=== PATIENT | male | born 1960 | race Caucasian/White ===

== ENCOUNTER 2016-10-12 01:33 | Emergency (ER) | payer OTHER ==
[2016-10-12 02:30] LABS: Hematocrit 36 % (42-52); Hemoglobin 11.9 g/dl (14.0-18.0); Mean Corpuscular HGB Conc 33 g/dl (31-36); Mean Corpuscular Hemoglobin 33 pg (27-31); Mean Corpuscular Volume 100 fL (80-94); Mean Platelet Volume 7 um3 (7.4-10.4); Red Blood Count 3.61 10^6/ul (4.0-5.4); Red Cell Distribution Width 13 % (10.5-15); White Blood Count 9.8 10^3/ul (3.5-10.8)
[2016-10-12 02:39] LABS: Urine Bilirubin Negative (Negative); Urine Glucose Negative (Negative); Urine Nitrite Negative (Negative)
[2016-10-12 02:46] LABS: Albumin 3.5 g/dL (3.2-5.2); BUN/Creatinine Ratio 23.5 (8-20); C Reactive Protein 8.44 mg/L (< 5.00); Calcium 8.8 mg/dL (8.6-10.3); EGFR African American 102.1 (>60); EGFR Non-African American 79.4 (>60); Globulin 3.1 g/dL (2-4); Magnesium 2.1 mg/dL (1.9-2.7); Potassium 3.8 mmol/L (3.5-5.0); Total Bilirubin 0.3 mg/dL (0.2-1.0); Total Protein 6.6 g/dL (6.4-8.9)
[2016-10-12 02:55] LABS: TSH (Thyroid Stimulating Horm) 5.96 mcIU/mL (0.34-5.60)
[2016-10-12] MEDS ORDERED: Iohexol 350* (CONTRAST) 500 ML MDV IV ONE (03:49)
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
[2016-10-12 05:42] VITALS: BP 161/83
--- NOTE | 2016-10-12 07:56 | RAD ---
HISTORY: Shortness of breath, recent pneumothorax COMPARISONS: January 12, 2011 VIEWS:1: Single frontal portable view of the chest at 2:38 AM FINDINGS: LINES AND TUBES: None. CARDIOMEDIASTINAL SILHOUETTE: The cardiomediastinal silhouette is normal for portable technique. PLEURA: The costophrenic angles are sharp. No pleural abnormalities are noted. There is no appreciable pneumothorax. LUNG PARENCHYMA: The lungs are clear. ABDOMEN: The upper abdomen is clear. There is no subphrenic gas. BONES AND SOFT TISSUES: There are fractures of the posterior aspects of the right fourth, fifth, sixth, seventh, eighth ribs. IMPRESSION: MULTIPLE RIGHT-SIDED RIB FRACTURES. NO APPRECIABLE PNEUMOTHORAX.
== END 2016-10-12 05:38 | disposition home or self-care (01) ==
LOC: ED 01:33
DX: R06.00 Dyspnea, unspecified (principal); R79.1 Abnormal coagulation profile; V29.9XXD Motorcycle rider (driver) (passenger) injured in unspecified traffic accident, subsequent encounter; S22.41XD Multiple fractures of ribs, right side, subsequent encounter for fracture with routine healing; R42 Dizziness and giddiness; R07.89 Other chest pain; K21.9 Gastro-esophageal reflux disease without esophagitis; Z96.651 Presence of right artificial knee joint; Z88.0 Allergy status to penicillin
CPT/HCPCS: 36415; 71010; 80053; 81003; 82550; 82553; 83605; 83690; 83735; 83880; 84443; 84484; 85025; 85379; 85610; 85730; 86140; 93005; 99283

== ENCOUNTER 2017-07-31 07:06 | Observation (INO) | payer OTHER ==
[2017-07-31] MEDS ORDERED: Diltiazem IV* 5 MG/ML 5 ML VIAL (for loading dose/IV Push) (25 MG) IV SLOW PU ONE (07:27)
[2017-07-31] MEDS ORDERED: NS 0.9% 1000 ML* 2,000 ML IV ONE (07:27)
[2017-07-31] MEDS ORDERED: Aspirin 81 mg CHEW TAB* 81 MG TAB.CHEW PO ONE (07:27)
[2017-07-31 07:42] LABS: ABS Basophils 0.1 10^3/ul (0-0.2); ABS Eosinophils 0.1 10^3/ul (0-0.6); ABS Lymphocytes 2.2 10^3/ul (1.0-4.8); ABS Monocytes 1.2 10^3/ul (0-0.8); ABS Neutrophils 8.6 10^3/ul (1.5-7.7); ABS Nucleated RBC 0 10^3/ul; Eosinophil % 1.1 % (0-6); Hematocrit 47 % (42-52); Hemoglobin 16.2 g/dl (14.0-18.0); Lymphocyte % 18.2 % (25-47); Mean Corpuscular HGB Conc 34 g/dl (31-36); Mean Corpuscular Hemoglobin 34 pg (27-31); Mean Corpuscular Volume 99 fL (80-94); Mean Platelet Volume 7.5 um3 (7.4-10.4); Nucleated Red Blood Cells % 0.1; Platelet Count 372 10^3/ul (150-450); Red Blood Count 4.78 10^6/ul (4.0-5.4); Red Cell Distribution Width 13 % (10.5-15); White Blood Count 12.3 10^3/ul (3.5-10.8)
[2017-07-31 07:50] LABS: INR 0.79 (0.77-1.02)
[2017-07-31 07:58] LABS: EGFR Non-African American 55.1 (>60)
--- NOTE | 2017-07-31 08:15 | RAD ---
Indication: Mid chest pain for 4 hours. Tachycardia. Comparison: October 13, 2016 CT. Technique: Upright AP chest 0730 hours Report: Multiple healed RIGHT rib fractures and mild volume loss of the RIGHT hemithorax without change. No pulmonary infiltrate, focal pulmonary lesion, pleural effusion, pneumothorax. The heart, pulmonary vasculature, and mediastinal contours are unremarkable. IMPRESSION: No evidence for acute intrathoracic disease.
[2017-07-31] MEDS ORDERED: Metoprolol Tartrate TAB* 25 MG PO ONE (08:21)
[2017-07-31] MEDS ORDERED: Diltiazem DRIP* 100 MG/100 ML ADDV.BAG IVPB ONE (08:44)
[2017-07-31] MEDS ORDERED: Al Hydrox/Mg Hydrox/Simet LIQ* 30 ML UDC PO PRN (09:05)
[2017-07-31] MEDS ORDERED: Acetaminophen TAB* 325 MG PO PRN (09:05)
[2017-07-31] MEDS ORDERED: Heparin DRIP 25,000 UNITS(*) 25,000 UNITS/500 ML BAG IV SCH (09:15)
[2017-07-31] MEDS: Diltiazem IV VIAL* 125 MG in NS 0.9% 100 ML* 100 ML IV ONE ×2 (09:30→10:28)
[2017-07-31] MEDS: NS 0.9% 1000 ML* 1,000 ML IV SCH ×2 (10:30→18:13)
[2017-07-31] MEDS ORDERED: Thiamine IV* 100 MG/ML 2 ML VIAL IM ONE (10:42)
[2017-07-31] MEDS ORDERED: LORazepam TAB(*) 1 MG PO SCH (11:00)
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
[2017-07-31] MEDS ORDERED: Perflutren Lipid Microsphere* 3 ML VIAL ONE (13:40)
--- NOTE | 2017-07-31 16:17 | ECHO ---
Patient: MARZENA SIMENTAL [facility] Rec#: [id number] : 1960 Date: 07/31/2017 Age: 57y Height: 182.88 cm / 72.0 in Weight: 93.89 kg / 206.9 lbs Sex: M BSA: 2.16 Room#: [facility] Admit Date#: 07/31/2017 Type: Inpatient Referring: Catrachita Preston MD Reading: Chris Olmstead DO Production Utility Worker: Mariaelena Andrea MIGUEL CC: Josh Lynch MD Transthoracic Echocardiogram Indication: A-fib BP: 101/74 HR: 88 Rhythm: A-Fib Findings History: CP, new a-fib,GERD. Technical Comments: The study is technically limited due to patient body habitus. Definity was used to enhance images. Left Ventricle: The left ventricular chamber size is normal. There is no left ventricular hypertrophy. There is a prominent septal knuckle. Global left ventricular wall motion and contractility are within normal limits. There is normal left ventricular systolic function. The estimated ejection fraction is 55-60%. The assessment of diastolic function is non-diagnostic. Left Atrium: The left atrial chamber size is normal. Right Ventricle: The right ventricular chamber size and systolic function are within normal limits. Right Atrium: The right atrial cavity size is normal. Aortic Valve: The aortic valve is trileaflet. There is no evidence of aortic regurgitation. There is no evidence of aortic stenosis. Mitral Valve: The mitral valve leaflets appear normal. There is mild mitral regurgitation. The mitral regurgitant jet is centrally directed. There is no evidence of mitral stenosis. Tricuspid Valve: The tricuspid valve leaflets are normal. There is trace tricuspid regurgitation. Unable to estimate the right ventricular systolic pressure. Pulmonic Valve: The pulmonic valve appears normal. There is a trace pulmonic regurgitation. There is no pulmonic stenosis. Pericardium: There is no significant pericardial effusion. Aorta: There is no dilatation of the ascending aorta. There is no dilatation of the aortic arch. There is no dilation of the aortic root. Pulmonary Artery: The main pulmonary artery appears normal. Venous: The venous system is not well visualized. Contrast: Definity was used to optimize study. A total of 3 ml given. Intravenous contrast was used to enhance endocardial border definition. Conclusions The left ventricular chamber size is normal. There is no left ventricular hypertrophy. There is a prominent septal knuckle. Global left ventricular wall motion and contractility are within normal limits. There is normal left ventricular systolic function. The estimated ejection fraction is 55-60%. The left atrial chamber size is normal. The right ventricular chamber size and systolic function are within normal limits. There is mild mitral regurgitation. Definity was used to optimize study. Patient is in atrial fibrillation at time of study None prior for comparison at time of interpretation Measurements Name Value Normal Range RVIDd (AP) 2D 2.7 cm (0.9 - 2.6) RVDdMajor (2D) 3.9 cm (2.2 - 4.4) RAd ISD 4CH 4.8 cm (3.4 - 4.9) RA (A4C)W 3.4 cm (2.9 - 4.6) IVSd (2D) 0.8 cm (0.6 - 1) LVPWd (2D) 0.9 cm (0.6 - 1) LVIDd (2D) 3.8 cm (3.6 - 5.4) LVIDs (2D) 2.8 cm - LV FS (2D) 25 % (25 - 45) Aortic Annulus 2 cm (1.4 - 2.6) Ao root diameter (2D) 3.5 cm (2.1 - 3.5) Ascending Ao 3.1 cm (2.1 - 3.4) Aortic arch 3.2 cm (1.8 - 3.4) Descending Ao 0.6 cm - LA dimension (AP) 2D 3.5 cm (2.3 - 3.8) LAd ISD 4CH 5.6 cm (2.9 - 5.3) LA ISD 4CH W 3.4 cm (2.5 - 4.5) Name Value Normal Range LA ESV SP 4CH (A/L) 44 ml - LA ESV SP 2CH (A/L) 71 ml - LA ESV BP (A/L) 59 ml - LA ESV BP (A/L) index 27.15 ml/m2 - LA ESV SP 4CH (MOD) 42 ml - LA ESV SP 2CH (MOD) 67 ml - Name Value Normal Range MV E-wave Vmax 1.1 m/sec - MV deceleration time 236 msec - LV septal e' Vmax 0.11 m/sec - LV lateral e' Vmax 0.12 m/sec - LV E:e' septal ratio 10 ratio - LV E:e' lateral ratio 9.17 ratio - Name Value Normal Range AV Vmax 1.4 m/sec - AV VTI 25.7 cm - AV peak gradient 8.08 mmHg - AV mean gradient 4.1 mmHg - LVOT Vmax 1.1 m/sec - LVOT VTI 20.8 cm - LVOT peak gradient 4.39 mmHg - LVOT mean gradient 2.16 mmHg - Name Value Normal Range MR Vmax 4 m/sec - MR VTI 127.3 cm - Name Value Normal Range PV Vmax 0.7 m/sec - PV peak gradient 1.89 mmHg -
[2017-07-31] MEDS: Diazepam TAB(*) 5 MG PO PRN (17:54)
--- NOTE | 2017-07-31 17:59 | ED ---
Dorothea Galindo Thomas, scribed for Gonzales Everett MD on 07/31/17 at 0723 . HPI Chest Pain - HPI Summary HPI Summary: The patient is a 57 year old male who woke up this morning with chest pain. The pain began four hours prior to arrival. The pain is rated 5/10. The patient also complains of intermittent racing palpitations. The patient denies leg pain and calf pain. He denies a history of A-Fib. In the examination room, he is A- Fib on the monitor. He does admit to some stress because he is going through a divorce. - History of Current Complaint Chief Complaint: EDChestPainROMI Hx Obtained From: Patient Onset/Duration: Started Hours Ago, Still Present Timing: Intermittent Current Severity: Moderate Pain Intensity: 5 Pain Scale Used: 0-10 Numeric Aggravating Factor(s): Nothing Alleviating Factor(s): Nothing Associated Signs and Symptoms: Positive: Chest Pain, Other: - Palpitations; NEGATIVE: leg swelling, calf pain. Negative: Fever - Allergy/Home Medications Allergies/Adverse Reactions: Allergies Allergy/AdvReac Type Severity Reaction Status Date / Time Penicillins Allergy Severe Anaphylatic Verified 07/31/17 08:52 Shock Home Medications: Home Medications NK [No Home Medications Reported] 07/31/17 [History Confirmed 07/31/17] PMH/Surg Hx/FS Hx/Imm Hx Endocrine/Hematology History: Denies: Hx Diabetes, Hx Thyroid Disease Cardiovascular History: Denies: Hx Hypertension, Hx Pacemaker/ICD Respiratory History: Denies: Hx Asthma, Hx Chronic Obstructive Pulmonary Disease (COPD) GI History: Reports: Hx Gastroesophageal Reflux Disease Denies: Hx Ulcer History: Denies: Hx Dialysis, Hx Renal Disease Musculoskeletal History: Reports: Hx Arthritis - ARTHRITIS IN THE RIGHT KNEE, Hx Bursitis - left elbow, Other Musculoskeletal History - LEFT SHOULDER SEPARATION OF THE LEFT AC JOINT Sensory History: Reports: Hx Contacts or Glasses - GLASSES Denies: Hx Hearing Aid Opthamlomology History: Reports: Hx Contacts or Glasses - GLASSES Psychiatric History: Denies: Hx Panic Disorder - Surgical History Surgery Procedure, Year, and Place: 2011 RIGHT KNEE SCOPE. 2010- RIGHT KNEE SCOPE. TEETH EXTRACTION AGE 13-. TONSILLECTOMY- AGE 13. Thumb laceration. RIGHT KNEE REPLACEMENT [facility]. CHEST TUBE. LT ELBOW - FRACTURED AND BURSA SAC REMOVED Hx Anesthesia Reactions: Yes - N/V A CHILD- NO PROBLEM WITH KNEE SCOPES Infectious Disease History: No Infectious Disease History: Denies: Hx Hepatitis, Hx Human Immunodeficiency Virus (HIV), Traveled Outside the [place] in Last 30 Days - Family History Known Family History: Positive: Other - CA. Negative: Hypertension - Social History Alcohol Use: Occasionally Hx Substance Use: No Substance Use Type: Reports: None Hx Tobacco Use: No Smoking Status (MU): Never Smoked Tobacco Review of Systems Negative: Fever Positive: Palpitations, Chest Pain Negative: Edema, Other - calf pain All Other Systems Reviewed And Are Negative: Yes Physical Exam - Summary Physical Exam Summary: General: well-appearing, no pain distress, no acute distress Skin: warm, color reflects adequate perfusion, dry Head: normal Eyes: EOMI, YOUSIF ENT: normal Neck: supple, nontender Respiratory: CTA, breath sounds present Cardiovascular: Tachycardia. Irregularly irregular rhythm. Abdomen: soft, nontender Bowel: present Musculoskeletal: normal, strength/ROM intact Neurological: normal, sensory/motor intact, A&O x3 Psychological: affect/mood appropriate Triage Information Reviewed: Yes Vital Signs On Initial Exam: Initial Vitals Temp Pulse Resp BP Pulse Ox 97.6 F 81 20 127/102 97 07/31/17 07:08 07/31/17 07:08 07/31/17 07:08 07/31/17 07:08 07/31/17 07:08 Vital Signs Reviewed: Yes Diagnostics - Vital Signs Vital Signs Temp Pulse Resp BP Pulse Ox 07/31/17 07:08 97.6 F 81 20 127/102 97 - Laboratory Lab Results: Lab Results 07/31/17 07/31/17 07/31/17 Range/Units 07:15 07:15 07:15 WBC (3.5-10.8) 10^3/ul RBC (4.0-5.4) 10^6/ul Hgb (14.0-18.0) g/dl Hct (42-52) % MCV (80-94) fL MCH (27-31) pg MCHC (31-36) g/dl RDW (10.5-15) % Plt Count (150-450) 10^3/ul MPV (7.4-10.4) um3 Neut % (Auto) (38-83) % Lymph % (Auto) (25-47) % Young % (Auto) (0-7) % Eos % (Auto) (0-6) % Baso % (Auto) (0-2) % Absolute Neuts (auto) (1.5-7.7) 10^3/ul Absolute Lymphs (auto) (1.0-4.8) 10^3/ul Absolute Monos (auto) (0-0.8) 10^3/ul Absolute Eos (auto) (0-0.6) 10^3/ul Absolute Basos (auto) (0-0.2) 10^3/ul Absolute Nucleated RBC 10^3/ul Nucleated RBC % INR (Anticoag Therapy) 0.79 (0.77-1.02) APTT 32.1 (26.0-36.3) seconds D-Dimer, Quantitative < 200 (Less Than 230) ng/mL Sodium 138 (133-145) mmol/L Potassium 3.9 (3.5-5.0) mmol/L Chloride 99 L (101-111) mmol/L Carbon Dioxide 26 (22-32) mmol/L Anion Gap 13 H (2-11) mmol/L BUN 21 (6-24) mg/dL Creatinine 1.34 H (0.67-1.17) mg/dL Est GFR ( Amer) 70.9 (>60) Est GFR (Non-Af Amer) 55.1 (>60) BUN/Creatinine Ratio 15.7 (8-20) Glucose 99 (70-100) mg/dL Lactic Acid (0.5-2.0) mmol/L Calcium 10.0 (8.6-10.3) mg/dL Magnesium 2.2 (1.9-2.7) mg/dL Total Bilirubin 0.50 (0.2-1.0) mg/dL AST 57 H (13-39) U/L ALT 60 H (7-52) U/L Alkaline Phosphatase 75 (34-104) U/L Total Creatine Kinase 212 (10-223) U/L CK-MB (CK-2) 3.5 (0.6-6.3) ng/mL Troponin I 0.01 (<0.04) ng/mL C-Reactive Protein 4.26 (< 5.00) mg/L B-Natriuretic Peptide 22 ( - 100) pg/mL Total Protein 8.1 (6.4-8.9) g/dL Albumin 4.3 (3.2-5.2) g/dL Globulin 3.8 (2-4) g/dL Albumin/Globulin Ratio 1.1 (1-3) Lipase 54 (11.0-82.0) U/L TSH 2.64 (0.34-5.60) mcIU/mL Salicylates < 2.50 (<30) mg/dL Acetaminophen < 15 mcg/mL Serum Alcohol 36 H (<10) mg/dL 07/31/17 07/31/17 Range/Units 07:15 07:15 WBC 12.3 H (3.5-10.8) 10^3/ul RBC 4.78 (4.0-5.4) 10^6/ul Hgb 16.2 (14.0-18.0) g/dl Hct 47 (42-52) % MCV 99 H (80-94) fL MCH 34 H (27-31) pg MCHC 34 (31-36) g/dl RDW 13 (10.5-15) % Plt Count 372 (150-450) 10^3/ul MPV 7.5 (7.4-10.4) um3 Neut % (Auto) 69.7 (38-83) % Lymph % (Auto) 18.2 L (25-47) % Young % (Auto) 10.1 H (0-7) % Eos % (Auto) 1.1 (0-6) % Baso % (Auto) 0.9 (0-2) % Absolute Neuts (auto) 8.6 H (1.5-7.7) 10^3/ul Absolute Lymphs (auto) 2.2 (1.0-4.8) 10^3/ul Absolute Monos (auto) 1.2 H (0-0.8) 10^3/ul Absolute Eos (auto) 0.1 (0-0.6) 10^3/ul Absolute Basos (auto) 0.1 (0-0.2) 10^3/ul Absolute Nucleated RBC 0 10^3/ul Nucleated RBC % 0.1 INR (Anticoag Therapy) (0.77-1.02) APTT (26.0-36.3) seconds D-Dimer, Quantitative (Less Than 230) ng/mL Sodium (133-145) mmol/L Potassium (3.5-5.0) mmol/L Chloride (101-111) mmol/L Carbon Dioxide (22-32) mmol/L Anion Gap (2-11) mmol/L BUN (6-24) mg/dL Creatinine (0.67-1.17) mg/dL Est GFR ( Amer) (>60) Est GFR (Non-Af Amer) (>60) BUN/Creatinine Ratio (8-20) Glucose (70-100) mg/dL Lactic Acid 2.2 H* (0.5-2.0) mmol/L Calcium (8.6-10.3) mg/dL Magnesium (1.9-2.7) mg/dL Total Bilirubin (0.2-1.0) mg/dL AST (13-39) U/L ALT (7-52) U/L Alkaline Phosphatase (34-104) U/L Total Creatine Kinase (10-223) U/L CK-MB (CK-2) (0.6-6.3) ng/mL Troponin I (<0.04) ng/mL C-Reactive Protein (< 5.00) mg/L B-Natriuretic Peptide ( - 100) pg/mL Total Protein (6.4-8.9) g/dL Albumin (3.2-5.2) g/dL Globulin (2-4) g/dL Albumin/Globulin Ratio (1-3) Lipase (11.0-82.0) U/L TSH (0.34-5.60) mcIU/mL Salicylates (<30) mg/dL Acetaminophen mcg/mL Serum Alcohol (<10) mg/dL Result Diagrams: 07/31/17 07:15 07/31/17 07:15 Lab Statement: Any lab studies that have been ordered have been reviewed, and results considered in the medical decision making process. - Radiology CXR Xray Interpretation: No Acute Changes - No evidence for acute intrathoracic disease. Dr. Everett has reviewed this report. Radiology Interpretation Completed By: Radiologist - EKG 07:19 Cardiac Rate: Tachycardia - at 144 BPM EKG Rhythm: Atrial Fibrillation EKG Interpretation: Rapid A-Fib at [address] depressions in lateral leads. 08:09 Cardiac Rate: Tachycardia - at 122 BPM EKG Rhythm: Atrial Fibrillation EKG Interpretation: Rapid A-Fib at 122 BPM. [address]. Normal [address]. 11:43 Cardiac Rate: NL EKG Rhythm: Atrial Fibrillation - at [address] Segment: Normal Chest Pain Course/Dx - Course Course Of Treatment: Medications reviewed. Allergies noted. BP noted and patient urged to follow up with primary care. - Diagnoses Provider Diagnoses: Elevated BP without diagnosis of hypertension, New onset atrial fibrillation, Chest pain - Provider Notifications Discussed Care Of Patient With: Catrachita Preston Time Discussed With Above Provider: 08:19 Instructed by Provider To: Admit As Inpatient - Critical Care Time Critical Care Time: 30-74 min Discharge - Sign-Out/Discharge Documenting (check all that apply): Discharge - Discharge Plan Condition: Fair Disposition: ADMITTED TO [facility] - Billing Disposition and Condition Condition: FAIR Disposition: [facility] [place] The documentation as recorded by the Dorothea bobby Thomas accurately reflects the service I personally performed and the decisions made by , Gonzales Everett MD.
[2017-07-31] MEDS ORDERED: Diltiazem CD CAP* 180 MG PO SCH (18:00)
[2017-07-31] MEDS ORDERED: Diltiazem IV VIAL* 125 MG in NS 0.9% 100 ML* 100 ML IV SCH (18:00)
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
[2017-07-31] MEDS ORDERED: Rivaroxaban TAB(*) 20 MG TAB PO SCH (18:30)
[2017-08-01] MEDS: NS 0.9% 1000 ML* 1,000 ML IV SCH ×2 (01:01→08:27)
[2017-08-01] MEDS ORDERED: Diltiazem IV VIAL* 125 MG in NS 0.9% 100 ML* 100 ML IV SCH (06:00)
[2017-08-01 06:56] LABS: ABS Basophils 0 10^3/ul (0-0.2); ABS Eosinophils 0.2 10^3/ul (0-0.6); ABS Lymphocytes 1.4 10^3/ul (1.0-4.8); ABS Monocytes 0.9 10^3/ul (0-0.8); ABS Neutrophils 4.8 10^3/ul (1.5-7.7); ABS Nucleated RBC 0 10^3/ul; Eosinophil % 2.1 % (0-6); Hematocrit 36 % (42-52); Hemoglobin 12.5 g/dl (14.0-18.0); Lymphocyte % 19.1 % (25-47); Mean Corpuscular HGB Conc 35 g/dl (31-36); Mean Corpuscular Hemoglobin 34 pg (27-31); Mean Corpuscular Volume 98 fL (80-94); Mean Platelet Volume 7.4 um3 (7.4-10.4); Nucleated Red Blood Cells % 0; Platelet Count 229 10^3/ul (150-450); Red Blood Count 3.66 10^6/ul (4.0-5.4); Red Cell Distribution Width 13 % (10.5-15); White Blood Count 7.3 10^3/ul (3.5-10.8)
[2017-08-01 07:13] LABS: EGFR Non-African American 76.4 (>60)
--- NOTE | 2017-08-01 08:16 | PN ---
Subjective Date of Service: 08/01/17 Interval History: Mr. Esquivel states that he is feeling much better and is eager for discharge to home. He denies chest pain. Objective Active Medications: Acetaminophen (Tylenol Tab*) 650 mg PO Q4H PRN Al Hydrox/Mg Hydrox/Simethicone (Maalox Plus*) 30 ml PO Q6H PRN Diazepam (Valium Tab(*)) 2.5 mg PO Q8H PRN Folic Acid (Folvite Tab*) 1 mg PO DAILY [facility] Sodium Chloride (Ns 0.9% 1000 Ml*) 1,000 mls @ 150 mls/hr IV PER RATE [facility] Diltiazem HCl 125 mg/ Sodium (Chloride) 125 mls @ 10 mls/hr IV Q12H [facility] Lorazepam (Ativan Tab(*)) 0 - 6 mg PO .PER [facility] PROTOCOL [facility] Multivitamins/Minerals (Theragran/Minerals Tab*) 1 tab PO DAILY [facility] Rivaroxaban (Xarelto(*)) 20 mg PO 1700 [facility] Thiamine HCl (Vitamin B-1 Tab*) 100 mg PO DAILY [facility] Vital Signs: Temp Pulse Resp BP Pulse Ox 98.1 F 73 20 123/58 99 08/01/17 03:42 07/31/17 19:01 08/01/17 03:42 08/01/17 06:32 07/31/17 19:01 Oxygen Devices in Use Now: None Appearance: Male lying in bed in NAD Eyes: No Scleral Icterus Ears/Nose/Mouth/Throat: Mucous Membranes Moist Neck: Trachea Midline Respiratory: Symmetrical Chest Expansion and Respiratory Effort, Clear to Auscultation Cardiovascular: NL Sounds; No Murmurs; No JVD, No Edema Abdominal: NL Sounds; No Tenderness; No Distention Lymphatic: No Cervical Adenopathy Extremities: No Edema Skin: No Rash or Ulcers Neurological: Alert and Oriented x 3, NL Muscle Strength and Tone Nutrition: Taking PO's Result Diagrams: 08/01/17 06:28 08/01/17 06:28 Additional Lab and Data: . Assess/Plan/Problems-Billing Assessment: Mr. Esquivel is a 57 yo M with no significant PMH who was admitted on 07/31/17 with chest pain and afib. - Patient Problems (1) Chest pain Comment: - Resolved. - Suspect secondary to afib with RVR. - Trops negative and no evidence of ischemia on EKG. (2) Afib Comment: - Resolved, suspect secondary to heavy alcohol intake. - Appreciate cardiology input. - Echo without wall motion or valvular abnormalities. - Continue cardizem and xarelto. (3) DVT prophylaxis Comment: - Xarelto. (4) Full code status Comment: Status and Disposition: OBV. Discharge to home.
[2017-08-01] MEDS: Diazepam TAB(*) 5 MG PO PRN (08:29)
[2017-08-01] MEDS ORDERED: Diltiazem CD CAP* 120 MG PO SCH (09:00)
[2017-08-01] MEDS ORDERED: Folic Acid TAB* 1 MG PO SCH (09:00)
[2017-08-01] MEDS ORDERED: Thiamine TAB* 100 MG TAB PO SCH (09:00)
[2017-08-01] MEDS ORDERED: Multivitamins/Minerals TAB PO SCH (09:00)
[2017-08-01 11:23] VITALS: BP 139/76
--- NOTE | 2017-08-02 02:56 | DS ---
HOSPITAL MEDICINE DISCHARGE SUMMARY: DATE OF ADMISSION: 07/31/17 DATE OF DISCHARGE: 08/01/17 PRIMARY CARE PHYSICIAN: Dr. Lynch. POLICY ADVISOR: Dr. Thapa. ATTENDING PHYSICIAN: Dr. Jae Jalloh * (dictation provided by Jannie Jensen NP). PRIMARY DIAGNOSES: 1. Chest pain. 2. Atrial fibrillation with rapid ventricular response. SECONDARY DIAGNOSIS: None. MEDICATIONS: At the time of discharge are: 1. Diltiazem CD 120 mg p.o. daily. 2. Xarelto 20 mg p.o. daily. HOSPITAL COURSE: Mr. Esquivel is a 57-year-old male with no known significant past medical history who presented to the hospital on 07/31/17 after developing chest pain in the middle of the night. Please see the dictated H and P from Catrachita Preston DO for the complete details. In brief, the patient reported that he had been drinking very heavily, approximately a fifth of whisky per day , due to stressor of his and divorce. He woke at 4 a.m. with chest pain in the center of his chest with palpitations. In the emergency room, he had a troponin, which was 0.01. His creatinine was slightly elevated to 1.34, potassium 3.9, magnesium 2.2. He had a lactic acid of 2.2. Mild leukocytosis at 12.3. Serum alcohol level is 36. Chest x-ray showed no acute process, but he was found to be in atrial fibrillation with a rapid ventricular response with a heart rate of 160s. Mr. Esquivel was put on a diltiazem drip as well as a heparin drip. Mr. Esquivel was seen in consultation by Dr. Chris Olmstead from Cardiology, who transitioned him from heparin drip over to Xarelto orally with plans for 3 to 4 weeks of therapy. The plan was for possible MINE with cardioversion if the patient did not convert independently. Mr. Esquivel converted overnight to normal sinus rhythm and has been in the normal sinus rhythm for several hours. He has been transitioned off his diltiazem drip on to diltiazem CD at a 120 mg p.o. daily. His blood pressure is well controlled and appropriate. He is also continued on his Xarelto. I spoke with Mr. Esquivel at length about his alcohol use and the fact that this is a high risk for complications especially with use of Xarelto. I also made clear to him that the atrial fibrillation was likely strongly related to alcohol and that he should avoid alcohol in the future. The patient reports that he has every intention to stop drinking and this has not really been a problem for him in the past. I have provided him with information about Alcoholics Anonymous. Mr. Esquivel is medically stable for discharge to home to follow up with Dr. Lynch and Dr. Thapa, who the patient is asking to be his new cuff presser. DISPOSITION: Home. DIET: Low-salt. ACTIVITY: As tolerated. FOLLOWUP PLANS: Please follow up with Dr. Thapa and Dr. Lynch regarding new onset atrial fibrillation. TIME SPENT: Approximately 60 minutes were spent on the discharge of this patient, more than half that time spent with the patient at the bedside reviewing the events leading up to this hospitalization, performing the physical examination, and reviewing my plan of care. JANNIE JENSEN, YEE [id number]/[facility] #: [id number] [facility]
== END 2017-08-01 14:05 | disposition home or self-care (01) ==
LOC: ED 07:06 → INTOOBSV 09:05 → MEDTELE 09:05
PROVIDERS: ADMIT Internal Medicine; ATTEND Internal Medicine
DX: R07.9 Chest pain, unspecified (principal); I48.91 Unspecified atrial fibrillation; Z87.19 Personal history of other diseases of the digestive system; N17.9 Acute kidney failure, unspecified; F10.10 Alcohol abuse, uncomplicated
CPT/HCPCS: 36415; 71045; 80048; 80053; 80320; 80329; 82550; 82553; 83605; 83690; 83735; 83880; 84443; 84484; 85025; 85379; 85610; 85730; 86140; 93005; 93306; 96374; 96375; 99284; A9270-GY; C8929; G0378; G0480; J3411

== ENCOUNTER 2018-07-14 07:50 | Emergency (ER) | payer SELFPAY ==
[2018-07-14] MEDS ORDERED: NS 0.9% 1000 ML** 1,000 ML IV ONE (08:18)
--- NOTE | 2018-07-14 08:20 | ED ---
Respiratory - HPI Summary HPI Summary: This patient is a 58 year old M presenting to ED with a chief complaint of SOB and cough since 6 months ago. The CC is described as coughing so hard that he sometimes vomits. He has been treated for PNA twice in the last 6 months. Was given a Z-julio cesar and put on a nebulizer just last week. He was not given abx. The patient rates the pain 0/10 in severity. Symptoms aggravated at night. Symptoms alleviated by nothing. Patient reports subjective fever and diaphoresis when he starts coughing. Patient denies CP. PMHx of afib, collapsed and punctured lung a little over a year ago and had a chest tube in. He is a non-smoker and has no hx of COPD or asthma. 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 - History of Current Complaint Chief Complaint: Frederick Stated Complaint: SOB, "I'M COUGHING TO THE POINT THAT I'M VOMINTING Time Seen by Provider: 07/14/18 08:13 Hx Obtained From: Patient Onset/Duration: Sudden Onset, Lasting Weeks - since 6 months ago, Still Present Timing: Constant Current Severity: None Pain Intensity: 0 Character: Cough (Productive) - to the point where he vomits Aggravating Factor(s): Other - worse at night Alleviating Factor(s): Nothing Associated Signs and Symptoms: Fever - subjective, SOB, Diaphoresis - Allergy/Home Medications Allergies/Adverse Reactions: Allergies Allergy/AdvReac Type Severity Reaction Status Date / Time Penicillins Allergy Severe Anaphylatic Verified 07/14/18 07:56 Shock PMH/Surg Hx/FS Hx/Imm Hx Endocrine/Hematology History: Denies: Hx Diabetes, Hx Thyroid Disease Cardiovascular History: Denies: Hx Hypertension, Hx Pacemaker/ICD, Hx Peripheral Vascular Disease Respiratory History: Denies: Hx Asthma, Hx Chronic Obstructive Pulmonary Disease (COPD) GI History: Reports: Hx Gastroesophageal Reflux Disease Denies: Hx Ulcer History: Denies: Hx Dialysis, Hx Renal Disease Musculoskeletal History: Reports: Hx Bursitis - left elbow, Other Musculoskeletal History - LEFT SHOULDER SEPARATION OF THE LEFT AC JOINT Denies: Hx Arthritis Sensory History: Reports: Hx Contacts or Glasses - GLASSES Denies: Hx Hearing Aid Opthamlomology History: Reports: Hx Contacts or Glasses - GLASSES Neurological History: Denies: Hx Headaches Psychiatric History: Reports: Hx Anxiety Denies: Hx Panic Disorder - Surgical History Surgery Procedure, Year, and Place: 2011 RIGHT KNEE SCOPE. 2011- RIGHT KNEE SCOPE. TEETH EXTRACTION AGE 13-. TONSILLECTOMY- AGE 13. Thumb laceration. RIGHT KNEE REPLACEMENT [facility]. CHEST TUBE. LT ELBOW - FRACTURED AND BURSA SAC REMOVED Hx Anesthesia Reactions: Yes - N/V A CHILD- NO PROBLEM WITH KNEE SCOPES - Immunization History Immunizations Up to Date: Yes Infectious Disease History: No Infectious Disease History: Denies: Hx Hepatitis, Hx Human Immunodeficiency Virus (HIV), Traveled Outside the [place] in Last 30 Days - Family History Known Family History: Positive: Other - [place]. Negative: Hypertension - Social History Alcohol Use: Occasionally Alcohol Amount: six pack Hx Substance Use: No Substance Use Type: Reports: None Hx Tobacco Use: No Smoking Status (MU): Never Smoked Tobacco Review of Systems Positive: Fever - subjective, Skin Diaphoresis Negative: Chest Pain Positive: Shortness Of Breath, Cough Positive: Vomiting All Other Systems Reviewed And Are Negative: Yes Physical Exam - Summary Physical Exam Summary: VITAL SIGNS: Reviewed. GENERAL: Patient is a well-developed and nourished MALE who is lying comfortable in the stretcher. Patient is not in any acute respiratory distress. HEAD AND FACE: No signs of trauma. No ecchymosis, hematomas or skull depressions. No sinus tenderness. EYES: PERRLA, EOMI x 2, No injected conjunctiva, no nystagmus. EARS: Hearing grossly intact. Ear canals and tympanic membranes are within normal limits. MOUTH: Oropharynx within normal limits. NECK: Supple, trachea is midline, no adenopathy, no JVD, no carotid bruit, no c- spine tenderness, neck with full ROM. CHEST: Symmetric, no tenderness at palpation LUNGS: Clear to auscultation bilaterally. No wheezing or crackles. CVS: Regular rate and rhythm, S1 and S2 present, no murmurs or gallops appreciated. ABDOMEN: Soft, non-tender. No signs of distention. No rebound no guarding, and no masses palpated. Bowel sounds are normal. EXTREMITIES: FROM in all major joints, no edema, no cyanosis or clubbing. NEURO: Alert and oriented x 3. No acute neurological deficits. Speech is normal and follows commands. SKIN: Dry and warm Triage Information Reviewed: Yes Vital Signs On Initial Exam: Initial Vitals Temp Pulse Resp BP Pulse Ox 97.0 F 88 16 158/99 98 07/14/18 07:53 07/14/18 07:53 07/14/18 07:53 07/14/18 07:53 07/14/18 07:53 Vital Signs Reviewed: Yes Diagnostics - Vital Signs Vital Signs Temp Pulse Resp BP Pulse Ox 07/14/18 07:53 97.0 F 88 16 158/99 98 - Laboratory Result Diagrams: 07/14/18 08:21 07/14/18 08:23 Lab Statement: Any lab studies that have been ordered have been reviewed, and results considered in the medical decision making process. - Radiology CXR Radiology Interpretation Completed By: Radiologist Summary of Radiographic Findings: No evidence for pneumonia or other acute intrathoracic process. Dr. Boo has reviewed this radiology report. - EKG 0829 Cardiac Rate: NL - 77 BPM EKG Rhythm: Sinus Rhythm EKG Comparison: No Significant Change - similar to 07/25/17 Summary of EKG Findings: No ST elevations Disposition - Course Assessment/Plan: 58-year-old female who presents to the emergency department with chief complaint of shortness of breath. Usually happens at nighttime. Test results without any significant abnormality. Chest x-ray shows no pneumonia or bronchitis. Since all test results are normal the patient will be discharged home with follow-up with PCP. Patient is hemodynamically stable alert and oriented 3. - Differential Dx - Cardiopulmonary Differential Diagnoses - Cardiopulmonary: Other - URI - Diagnoses Provider Diagnoses: URI (upper respiratory infection) Discharge - Sign-Out/Discharge Documenting (check all that apply): Patient Departure - discharge Patient Received Moderate/Deep Sedation with Procedure: No - Discharge Plan Condition: Stable Disposition: HOME Patient Education Materials: Upper Respiratory Infection (ED) Referrals: Josh Lynch MD [Primary Care Provider] - 3 Days Additional Instructions: RETURN TO THE ED FOR ANY WORSENING OR NEW SYMPTOMS. - Billing Disposition and Condition Condition: STABLE Disposition: Home - Attestation Statements Document Initiated by Scribe: Yes Documenting Scribe: Yung Melendez Provider For Whom Scribe is Documenting (Include Credential): Fred Boo MD Scribe Attestation: Yung Galindo, scribed for Fred Boo MD on 07/14/18 at 1844. Scribe Documentation Reviewed: Yes Provider Attestation: The documentation as recorded by the scribe, Yung Melendez accurately reflects the service I personally performed and the decisions made by me, Fred Boo MD Status of Scribe Document: Viewed
[2018-07-14 08:54] LABS: Activated Partial Thrombo Time 32.5 seconds (26.0-36.3); INR 0.85 (0.77-1.02)
[2018-07-14 08:54] LABS: ABS Basophils 0.1 10^3/ul (0-0.2); ABS Eosinophils 0.2 10^3/ul (0-0.6); ABS Lymphocytes 1.6 10^3/ul (1.0-4.8); ABS Monocytes 0.8 10^3/ul (0-0.8); ABS Neutrophils 5.5 10^3/ul (1.5-7.7); ABS Nucleated RBC 0 10^3/ul; Eosinophil % 2.1 %; Hematocrit 42 % (42-52); Hemoglobin 14.2 g/dl (14.0-18.0); Lymphocyte % 19.8 %; Mean Corpuscular HGB Conc 34 g/dl (31-36); Mean Corpuscular Hemoglobin 33 pg (27-31); Mean Corpuscular Volume 97 fL (80-94); Mean Platelet Volume 7.3 fL (7.4-10.4); Nucleated Red Blood Cells % 0; Platelet Count 333 10^3/ul (150-450); Red Blood Count 4.29 10^6/ul (4.00-5.40); Red Cell Distribution Width 12 % (10.5-15); White Blood Count 8.1 10^3/ul (3.5-10.8)
[2018-07-14 08:55] LABS: Influenza A Molecular NEGATIVE (Negative); Influenza B Molecular NEGATIVE (Negative)
[2018-07-14 09:08] LABS: Albumin/Globulin Ratio 1.3 (1-3); C Reactive Protein 5.23 mg/L (<8.01); CKMB ng/mL 1.3 ng/mL (0.6-6.3); Calcium 9.2 mg/dL (8.6-10.3); EGFR African American 88.1 (>60); EGFR Non-African American 72.8 (>60); Globulin 3.1 g/dL (2-4); Potassium 3.8 mmol/L (3.5-5.0); Total Bilirubin 0.5 mg/dL (0.2-1.0); Total Protein 7.1 g/dL (6.4-8.9)
[2018-07-14 09:40] LABS: Urine Appearance Clear; Urine Bilirubin Negative (Negative); Urine Blood Negative (Negative); Urine Color Straw; Urine Glucose Negative (Negative); Urine Ketones Negative (Negative); Urine Nitrite Negative (Negative); Urine Protein Negative (Negative); Urine Specific Gravity 1.004 (1.010-1.030); Urine Urobilinogen Negative (Negative)
[2018-07-14 11:02] VITALS: BP 159/87
== END 2018-07-14 11:01 | disposition home or self-care (01) ==
LOC: ED 07:50
DX: J06.9 Acute upper respiratory infection, unspecified (principal); I48.91 Unspecified atrial fibrillation; Z88.0 Allergy status to penicillin; K21.9 Gastro-esophageal reflux disease without esophagitis; F41.9 Anxiety disorder, unspecified
CPT/HCPCS: 36415; 71046; 80053; 81003; 82550; 82553; 83605; 83880; 84484; 85025; 85379; 85610; 85730; 86140; 93005; 96360; 96361; 99282

== ENCOUNTER 2018-08-02 02:07 | Emergency (ER) | payer SELFPAY ==
--- NOTE | 2018-08-02 02:29 | ED ---
Shortness of Breath - HPI Summary HPI Summary: A 58 y/o M presents to ED with c/o SOB onset last night and worsening today. He has been having this problem for months with undulating intensity. He coughs so hard, he vomits and has pulled muscles in his back in the past. Associated sx: productive cough (phlegm), wheezes. Pt has not been sleeping well. Denies rash. He sees VIVIEN Sheth who is treating him for reflux. He is scheduled for a sleep study on September 28. Pt was seen in [facility] on 07/14 for same symptoms. He does use an inhaler. - History of Current Complaint Chief Complaint: EDGeneral Hx Obtained From: Patient, Family/Parimutuel Cashier - Onset/Duration: Gradual Onset, Lasting Days, Still Present Timing: Constant Dyspnea At: Rest Associated Signs & Symptoms: Cough (Productive), Wheezing - Allergy/Home Medications Allergies/Adverse Reactions: Allergies Allergy/AdvReac Type Severity Reaction Status Date / Time Penicillins Allergy Severe Anaphylatic Verified 08/02/18 02:14 Shock PMH/Surg Hx/FS Hx/Imm Hx Previously Healthy: No Endocrine/Hematology History: Denies: Hx Diabetes, Hx Thyroid Disease Cardiovascular History: Denies: Hx Hypertension, Hx Pacemaker/ICD, Hx Peripheral Vascular Disease Respiratory History: Denies: Hx Asthma, Hx Chronic Obstructive Pulmonary Disease (COPD) GI History: Reports: Hx Gastroesophageal Reflux Disease Denies: Hx Ulcer History: Denies: Hx Dialysis, Hx Renal Disease Musculoskeletal History: Reports: Hx Bursitis - left elbow, Other Musculoskeletal History - LEFT SHOULDER SEPARATION OF THE LEFT AC JOINT Denies: Hx Arthritis Sensory History: Reports: Hx Contacts or Glasses - GLASSES Denies: Hx Hearing Aid Opthamlomology History: Reports: Hx Contacts or Glasses - GLASSES Neurological History: Denies: Hx Headaches Psychiatric History: Reports: Hx Anxiety Denies: Hx Panic Disorder - Surgical History Surgery Procedure, Year, and Place: 2011 RIGHT KNEE SCOPE. 2010- RIGHT KNEE SCOPE. TEETH EXTRACTION AGE 13-. TONSILLECTOMY- AGE 13. Thumb laceration. RIGHT KNEE REPLACEMENT [facility]. CHEST TUBE. LT ELBOW - FRACTURED AND BURSA SAC REMOVED Hx Anesthesia Reactions: Yes - N/V A CHILD- NO PROBLEM WITH KNEE SCOPES Infectious Disease History: No Infectious Disease History: Denies: Hx Hepatitis, Hx Human Immunodeficiency Virus (HIV), Traveled Outside the [place] in Last 30 Days - Family History Known Family History: Positive: Other - [place]. Negative: Hypertension - Social History Occupation: Employed Full-time Lives: With Family Alcohol Use: Occasionally Alcohol Amount: six pack Hx Substance Use: No Substance Use Type: Reports: None Hx Tobacco Use: No Smoking Status (MU): Never Smoked Tobacco Review of Systems Positive: Shortness Of Breath, Cough, Other - pos: wheezing Positive: Vomiting All Other Systems Reviewed And Are Negative: Yes Physical Exam - Summary Physical Exam Summary: Appearance: Well-appearing, Well-nourished, lying in bed comfortably Skin: Warm, dry, no obvious rash Eyes: sclera anicteric, no conjunctival pallor ENT: mucous membranes moist, pharynx appears normal Neck: Supple, nontender Respiratory: Clear to auscultation, no signs of respiratory distress Cardiovascular: Normal S1, S2. No murmurs. Normal distal pulses in tibial and radial bilaterally. Abdomen: Soft, nontender, normal active bowel sounds present Musculoskeletal: Normal, Strength/ROM Intact Neurological: A&Ox3, awake and alert, mentation is normal, speech is fluent and appropriate Psychiatric: affect is normal, does not appear anxious or depressed Triage Information Reviewed: Yes Vital Signs On Initial Exam: Initial Vitals Temp Pulse Resp BP Pulse Ox 97.6 F 68 20 160/93 96 08/02/18 02:07 08/02/18 02:07 08/02/18 02:07 08/02/18 02:07 08/02/18 02:07 Vital Signs Reviewed: Yes Diagnostics - Vital Signs Vital Signs Temp Pulse Resp BP Pulse Ox 08/02/18 02:07 97.6 F 68 20 160/93 96 - Laboratory Lab Statement: Any lab studies that have been ordered have been reviewed, and results considered in the medical decision making process. Course/Dx - Course Course Of Treatment: Pt is a 58 y/o M c/o SOB onset last night and worsening today. He has been having this problem for months with undulating intensity. He coughs so hard, he vomits and has pulled muscles in his back in the past. Denies rash. He sees Dr. Zaragoza GI who is treating him for reflux. He is scheduled for a sleep study on September 28. Pt was seen in [facility] on 07/14 for same symptoms. He does use an inhaler. Will discharge patient home with Prednisone, Tessalon, Singulair. - Diagnoses Provider Diagnoses: Chronic cough Discharge - Sign-Out/Discharge Documenting (check all that apply): Patient Departure - DC Patient Received Moderate/Deep Sedation with Procedure: No - Discharge Plan Condition: Good Disposition: HOME Prescriptions: Benzonatate CAP* [Tessalon 100 MG CAP*] 100 mg PO TID #20 cap Montelukast Sodium TAB* [Singulair TAB*] 10 mg PO BEDTIME #14 tab predniSONE [Prednisone 20 MG TAB] 40 mg PO DAILY 7 Days #14 tablet Patient Education Materials: Chronic Cough (ED) Referrals: Josh Lynch MD [Primary Care Provider] - 7 Days Additional Instructions: You can stop taking the Ranitidine, it is not necessary if you are on omeprazole. - Billing Disposition and Condition Condition: GOOD Disposition: Home - Attestation Statements Document Initiated by Scribe: Yes Documenting Scribe: Mark Garner Provider For Whom Scribe is Documenting (Include Credential): Dr. Joshua Araya MD Scribe Attestation: Mateo, Mark Garner, scribed for Dr. Joshua Araya MD on 08/02/18 at 0620. Scribe Documentation Reviewed: Yes Provider Attestation: The documentation as recorded by the Mark bobby accurately reflects the service I personally performed and the decisions made by me, Dr. Joshua Araya MD Status of Scribe Document: Viewed
[2018-08-02] MEDS ORDERED: Benzonatate CAP* 100 MG PO ONE (02:33)
[2018-08-02] MEDS ORDERED: Montelukast Sodium TAB* 10 MG PO ONE (02:33)
[2018-08-02] MEDS ORDERED: predniSONE TAB* 20 MG PO ONE (02:33)
--- OUTSIDE RECORDS SUMMARY | 2018-08-02 02:46 | XMS REPORT | Continuity of Care Document ---
:1960 External Reference #:[id number] Author Name Sharona Terry Care Team Providers Name Role Phone Liseth Bull MD Primary Care Physician Unavailable Payers Date Identification Numbers Payment Provider Subscriber Effective: 2018 Policy Number: [id number] [employer] Jae Esquivel PayID: [id number] [address] [address] [place] [address] Advance Directives Description No Information Available Problems Date Description Provider Status Onset: 10/17/2012 Lyme disease Vignesh Bender M.D. Active Onset: 11/04/2015 Dislocation of proximal Magalie Cardona M.D. Active interphalangeal joint of left ring finger, subsequent encounter Onset: 11/04/2015 Nondisplaced fracture of shaft of Magalie Cardona M.D. 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 ETOH Use Consumes 2 beers per day Tobacco Use Start: Unknown Patient has never smoked Recreational Drug Use Denies Drug Use Smoking Status Reviewed: 07/23/18 Patient has never smoked Exercise Type/Frequency Exercises regularly Allergies, Adverse Reactions, Alerts Date Description Reaction Status Severity Comments 10/17/2012 Penicillins Active Medications Medication Date Status Form Strength Qnty SIG Indications Ordering Provider Zantac 150 07/23/ Active Tablets 150mg 30tabs take one Iram Maximum 2018 pill Goncalves, [employer]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 02/09/ every 6 2015 hours as needed pain Oxycodone-Aceta 01/18/ Hx Tablets 5-325mg 40tabs 1-2 tab Magalie gonzalez 2015 - by cinthya Cardona M.D. 01/07/ every 4-6 2015 hours as needed pain No Active 01/13/ Hx Unknown Medications 2015 - 2015 Hydrocodone 01/13/ Hx Tablets 5-300mg 30tabs 1-2 tabs Magalie Bitartrate/Acet 2016 - by cinthya Cardona M.D. aminophen 01/07/ every 4-6 2015 hours as needed pain Vicodin 11/05/ Hx Tablets 5-300mg 20tabs take one Magalie 2015 - tab by Patricia Cardona mouth 2015 every 6 hours as needed pain Vicodin 10/25/ Hx Tablets 5-300mg 30tabs 1-2 by Magalie 2015 - cinthya Cardona M.D. 01/12/ every 2015 4-6hr as needed pain Ketoconazole 10/17/ Hx Cream 2% 1tube apply to 088.81 Vignesh Maldonado 2012 - skin once Mac, 10/18/ a day for .DSidney 2015 2 weeks Doxycycline / Hx Capsules 100mg 42caps si Unknown Monohydrate 0000 - bid x 21 10/18/ 2015 Zolpidem / Hx Tablets ER 12.5mg 18tabs 1 po qhs Unknown Tartrate ER 0000 - 2015 Percocet / Hx Tablets 10-325mg 1 by Unknown 0000 - mouth 2015 hours as needed pain Diazepam / Hx Tablets 2mg 1 by Unknown 0000 - mouth 2 -3 Times 2019 A Day prn Buspirone HCL / Hx Tablets 15mg take one Unknown 0000 - tablet by 2019 twice a day Diltiazem CD / Hx Caps ER 120mg 1 by Unknown 0000 - 24HR mouth day 2018 Xarelto / Hx Tablets 20mg 1 by Unknown 0000 - mouth 2017 Pepcid ac / Hx Tablets 10mg 1 po qd Unknown - 2018 Vitamin B 12 / Hx Lozenges 1000mcg 1 by Unknown 0000 - mouth 2018 Vitamin D-3 / Hx Capsules 1000Unit 1 by Unknown 0000 - mouth 2018 Immunizations Description No Information Available Vital Signs Date Vital Result Comment 07/23/2018 8:51am Height 71 inches 5'11" Weight 212.00 lb Heart Rate 81 /min BP Systolic 147 mmHg BP Diastolic 83 mmHg Body Temperature 95.8 F O2 % BldC Oximetry 96 % BMI (Body Mass Index) 29.6 kg/m2 09/06/2017 2:33pm Height 71 inches 5'11" Weight 206.12 lb Heart Rate 84 /min BP Systolic Sitting 144 mmHg L/A Reg Cuff BP Diastolic Sitting 90 mmHg L/A Reg Cuff BP Systolic Standing 128 mmHg la repeat sitting BP Diastolic Standing 78 mmHg la repeat sitting BMI (Body Mass Index) 28.7 kg/m2 Ejection Fraction 55-60% echo 07/31/2017 11/09/2016 9:12am Height 71 inches 5'11" Weight 201.00 lb Heart Rate 82 /min BP Systolic Sitting 134 mmHg BP Diastolic Sitting 78 mmHg Respiratory Rate 16 /min Body Temperature 97.0 F Pain Level 1 BMI (Body Mass Index) 28.0 kg/m2 10/17/2016 9:03am Height 72 inches 6'0" Weight 203.00 lb Heart Rate 80 /min BP Systolic 120 mmHg BP Diastolic 73 mmHg Respiratory Rate 16 /min Body Temperature 98.5 F Pain Level 4 BMI (Body Mass Index) 27.5 kg/m2 02/11/2016 8:37am Height 72 inches 6'0" Weight 202.00 lb BMI (Body Mass Index) 27.4 kg/m2 01/28/2016 8:25am Height 72 inches 6'0" Weight 202.00 lb Body Temperature 96.9 F Pain Level 0 BMI (Body Mass Index) 27.4 kg/m2 01/14/2016 9:41am Height 72 inches 6'0" Weight 202.00 lb BP Systolic 118 mmHg BP Diastolic 80 mmHg Pain Level 4 BMI (Body Mass Index) 27.4 kg/m2 11/26/2015 2:44pm Height 72 inches 6'0" Weight 190.00 lb Heart Rate 68 /min Respiratory Rate 16 /min Pain Level 3 BMI (Body Mass Index) 25.8 kg/m2 11/04/2015 8:22am Height 72 inches 6'0" Weight 190.00 lb Heart Rate 64 /min Respiratory Rate 16 /min Pain Level 4 BMI (Body Mass Index) 25.8 kg/m2 10/26/2015 12:04pm Height 72 inches 6'0" Weight 190.00 lb Heart Rate 72 /min BP Systolic Sitting 142 mmHg BP Diastolic Sitting 80 mmHg Respiratory Rate 16 /min Pain Level 7 BMI (Body Mass Index) 25.8 kg/m2 10/20/2015 11:50am Height 72 inches 6'0" Weight 190.00 lb Heart Rate 60 /min BP Systolic Sitting 110 mmHg BP Diastolic Sitting 70 mmHg Respiratory Rate 16 /min Pain Level 6 BMI (Body Mass Index) 25.8 kg/m2 10/17/2012 2:02pm Height 72 inches 6'0" Weight 190.00 lb Heart Rate 64 /min BP Systolic 118 mmHg BP Diastolic 76 mmHg Body Temperature 96.6 F BMI (Body Mass Index) 25.8 kg/m2 Results Test Date Facility Test Result H/L Range Note Lipid Profile [facility] Triglycerides 110 mg/dL 1 (Trig/Chol/HDL) [address] [place] [address] [phone] Cholesterol 193 mg/dL 2 HDL Cholesterol 73.5 mg/dL 3 LDL Cholesterol 98 mg/dL 4 Comp Metabolic Panel 04/05/2018 [facility] Sodium 139 mmol/L N 135-[address] [place] [address] [phone] Potassium 3.9 mmol/L N 3.5-5.0 Chloride 105 mmol/L N 101-111 Co2 Carbon Dioxide 24 mmol/L N 22-32 Anion Gap 10 mmol/L N 2-11 Glucose 97 mg/dL N 70-100 Blood Urea Nitrogen 13 mg/dL N 6-24 Creatinine 1.01 mg/dL N 0.67-1.17 BUN/Creatinine Ratio 12.9 N 8-20 Calcium 9.6 mg/dL N 8.6-10.3 Total Protein 7.1 g/dL N 6.4-8.9 Albumin 4.2 g/dL N 3.2-5.2 Globulin 2.9 g/dL N 2-4 Albumin/Globulin Ratio 1.4 N 1-3 Total Bilirubin 0.60 mg/dL N 0.2-1.0 Alkaline Phosphatase 60 U/L N 34-104 Alt 23 U/L N 7-52 Ast 22 U/L N 13-39 Egfr Non- 76.4 >60 Egfr 92.5 >60 5 Laboratory test 04/05/2018 [facility] Creatine 105 U/L N 10- [address] Kinase(CK) [place] [address] [phone] Urine Microalbumin 04/05/2018 [facility] Ur Microalbumin < 15.[address] (mg/L) [place] [address] [phone] Urine Creatinine 245.52 mg/dL Urine Microalbumin/Creatinine TNP <31 6 Laboratory test 10/25/2017 [facility] Testosterone 282.77 N 240-[address] Total ng/[place] [address] [phone] PSA Screening 1.002 ng/mL N 0-4.000 7 Vitamin B12 389 pg/mL N 180-914 8 Vitamin D Total 25(Oh) 31.6 ng/mL N 20-50 Laboratory test 10/25/2017 [facility] LDL Cholesterol 130 mg/dL [address] [place] [address] [phone] Iron & Iron 10/25/2017 [facility] Iron 82 g/dL N 50-212 Binding Capacity [address] [place] [address] [phone] Unsaturated Iron Binding 276 g/dL Total Iron Binding Capacity 358 g/dL N 250-450 Transferrin 256 mg/dL N 203-362 % Iron Saturation 23 % N 15-55 Vitamin B12 10/25/2017 [facility] Folic Acid 12.49 ng/mL > 3.99 And Folate [address] (Folate) [place] [address] [phone] CBC Auto Diff 10/25/2017 [facility] White Blood 8.5 10^3/uL N 3.5-10.[address] [place] [address] [phone] Red Blood Count 4.49 10^6/uL N 4.00-5.40 Hemoglobin 15.5 g/dL N 14.0-18.0 Hematocrit 45 % N 42-52 Mean Corpuscular Volume 100 fL High 80-94 Mean Corpuscular Hemoglobin 35 pg High 27-31 Mean Corpuscular HGB Conc 35 g/dL N 31-36 Red Cell Distribution Width 13 % N 10.5-15 Platelet Count 351 10^3/uL N 150-450 Mean Platelet Volume 8.1 um3 N 7.4-10.4 Abs Neutrophils 5.4 10^3/uL N 1.5-7.7 Abs Lymphocytes 1.9 10^3/uL N 1.0-4.8 Abs Monocytes 1.0 10^3/uL High 0-0.8 Abs Eosinophils 0.2 10^3/uL N 0-0.6 Abs Basophils 0.1 10^3/uL N 0-0.2 Abs Nucleated RBC 0 10^3/uL Granulocyte % 63.3 % N 38-83 Lymphocyte % 22.3 % Low 25-47 Monocyte % 11.6 % High 0-7 Eosinophil % 1.9 % N 0-6 Basophil % 0.9 % N 0-2 Nucleated Red Blood Cells % 0 Laboratory test 10/25/2017 [facility] Magnesium 2.2 mg/dL N 1.9-2.[address] [place] [address] [phone] Lipid Profile 10/25/2017 [facility] Triglycerides 434 mg/dL 10 (Trig/Chol/HDL) [address] [place] [address] [phone] Cholesterol 236 mg/dL 11 HDL Cholesterol 48.9 mg/dL 12 LDL Cholesterol (SEE NOTE) mg/dL 13 Comp Metabolic Panel 10/25/2017 [facility] Sodium 137 mmol/L N 135-[address] [place] [address] [phone] Potassium 4.2 mmol/L N 3.5-5.0 Chloride 100 mmol/L Low 101-111 Co2 Carbon Dioxide 27 mmol/L N 22-32 Anion Gap 10 mmol/L N 2-11 Glucose 88 mg/dL N 70-100 Blood Urea Nitrogen 15 mg/dL N 6-24 Creatinine 1.18 mg/dL High 0.67-1.17 BUN/Creatinine Ratio 12.7 N 8-20 Calcium 10.0 mg/dL N 8.6-10.3 Total Protein 7.7 g/dL N 6.4-8.9 Albumin 4.4 g/dL N 3.2-5.2 Globulin 3.3 g/dL N 2-4 Albumin/Globulin Ratio 1.3 N 1-3 Total Bilirubin 0.50 mg/dL N 0.2-1.0 Alkaline Phosphatase 67 U/L N 34-104 Alt 43 U/L N 7-52 Ast 34 U/L N 13-39 Egfr Non- 63.9 >60 Egfr 82.1 >60 14 Lipid Panel - 10/25/2017 [facility] Creatine 96 U/L N 10-[address] Kinase(CK) [place] [address] [phone] Laboratory 01/19/2016 [facility] Surgical SEE RESULT 15, 16 test finding [address] [place] [address] [phone] Liver Function 10/17/2012 [facility] Alt 223 U/L High 14-[address] [place] [address] [phone] Ast 123 U/L High 12-42 Direct Bilirubin 0.1 mg/dL 0.1-0.5 Total Bilirubin 0.5 mg/dL 0.4-1.5 Albumin 3.4 g/dL Low 3.6-5.4 Tick Borne 10/17/2012 [facility] Babesia microti Negative Negative [address] [place] [address] [phone] Anaplasma phagocytophilum Negative Negative Ehrlichia chaffeensis Negative Negative Ehrlichia ewingii/canis Negative Negative Ehrlichia muris-like Negative Negative 18 1 Desirable: <150 Borderline High: 150-199 High: 200-499 Very High: >500 2 Desirable: <200 Borderline High: 200-239 High: >239 3 Low: <40 Desirable: 40-60 High: >60 4 Desirable: <100 Near Optimal: 100-129 Borderline High: 130-159 High: 160-189 Very High: >189 5 Because ethnic data is not always readily available, this report includes an eGFR for both -Americans and non- Americans. The National Kidney Disease Education Program (NKDEP) does not endorse the use of the MDRD equation for patients that are not between the ages of 18 and 70, are , have extremes of body size, muscle mass, or nutritional status, or are non- or non-. According to the National Kidney Foundation, irrespective of diagnosis, the stage of the disease is based on the level of kidney function: Stage Description GFR(mL/min/1.73 m(2)) 1 Kidney damage with normal or decreased GFR 90 2 Kidney damage with mild decrease in GFR 60-89 3 Moderate decrease in GFR 30-59 4 Severe decrease in GFR 15-29 5 Kidney failure <15 (or dialysis) 6 Unable to calculate due to low microalbumin 7 Serum levels of PSA measured using the [facility] DXI Hybritech immunoassay should not be interpreted as absolute evidence of the presence or absence of disease. The PSA value should be used in conjunction with other pertinent clinical diagnostic procedures. The values obtained with different assay methods or kits cannot be used interchangeably. 8 Normal Range 180 to 914 Indeterminate Range 145 to 180 Deficient Range <145 9 Desirable: <100 Near Optimal: 100-129 Borderline High: 130-159 High: 160-189 Very High: >189 10 Desirable: <150 Borderline High: 150-199 High: 200-499 Very High: >500 11 Desirable: <200 Borderline High: 200-239 High: >239 12 Low: <40 Desirable: 40-60 High: >60 13 Unable to calculate LDL as triglyceride is > 400 14 Because ethnic data is not always readily available, this report includes an eGFR for both -Americans and non- Americans. The National Kidney Disease Education Program (NKDEP) does not endorse the use of the MDRD equation for patients that are not between the ages of 18 and 70, are , have extremes of body size, muscle mass, or nutritional status, or are non- or non-. According to the National Kidney Foundation, irrespective of diagnosis, the stage of the disease is based on the level of kidney function: Stage Description GFR(mL/min/1.73 m(2)) 1 Kidney damage with normal or decreased GFR 90 2 Kidney damage with mild decrease in GFR 60-89 3 Moderate decrease in GFR 30-59 4 Severe decrease in GFR 15-29 5 Kidney failure <15 (or dialysis) 15 [id number] SEE RESULT BELOW Name: JAE ESQUIVEL : [address]: Magalie Cardona MD Acct: [id number] Unit: [id number] AGE: 55 Location: [facility] Re01/19/16 SEX: M Status: REG [facility] [place] SPEC: [id number] HORTENCIA: 01/19/16-[address] [facility] [address]: Magalie Cardona MD REQ: [id number] RECD: [id number] STATUS: SOUT _ ORDERED: LEVEL III COMMENTS: [id number] FINAL DIAGNOSIS Bursa, left elbow, excision: -- Chronic tenosynovitis. PRE-OPERATIVE DIAGNOSIS Left elbow bursitis GROSS DESCRIPTION The specimen is received in formalin labeled, Left Elbow Bursa, and consists of a 6.3 x 3.6 x 0.8 cm, previously disrupted, multilocular cyst comprised of a white-pink, rubbery, fibrocartilaginous to papilliferous tissue. Burn Crew Member sections are submitted in one cassette. Signed (signature on file) Latosha Florentino MD 1112 END OF REPORT * ML=Testing performed at Main Lab DEPARTMENT OF PATHOLOGY, [address] [place] [address] Cirilo Johnson M.D. Director [facility] # [id number] 17 Laboratory developed test. 18 Laboratory developed test. Test Performed by: [place] [address] Global Human Resources Director: Jonathan Dover III, M.D. Procedures Date Code Description Status 11/01/2017 23548 ECHO Stress Test Incl Perf Contiuous ekg Monitoring W/Phys Completed Superv 09/06/2017 00347 EKG Tracing & Interpretation Completed 08/01/2017 63949 EKG, Interpretation Only Completed 07/31/2017 46172 ECHO Transthorasic Realtime 2D W Doppler & Color Flow Hosp Completed 10/17/2016 83509 Closed TRTMT Clavicular Fracture Completed 01/19/2016 94789 Excision, Olecranon Bursa Completed 01/19/2016 35060 Excision, Olecranon Bursa Completed 10/20/2015 87194 Closed TX Metacarpal FX Single W/O Manipulation, Ea Bone Completed Encounters Type Date Location Provider Dx Diagnosis Office Visit 09/06/2017 [facility] Tate Gimenez R07.9 Chest pain, 3:00p Patricia Thapa unspecified I48.0 Paroxysmal atrial fibrillation I10 Essential (primary) hypertension D64.9 Anemia, unspecified Office Visit 08/01/2017 11:16a [facility] [place] Jannie Jensen, I48.91 Unspecified atrial Assoc,pc N.P. fibrillation Hospitalists F10.10 Alcohol abuse, uncomplicated R07.1 Chest pain on breathing Office Visit 07/31/2017 [facility] Chris Wilson I48.91 Unspecified atrial 11:56a Of Instant Print Operator [place], DO fibrillation FACC Office Visit 07/31/2017 [facility] [place] Catrachita I48.91 Unspecified atrial 11:16a Assoc,pc Kary, DO fibrillation Hospitalists F10.10 Alcohol abuse, uncomplicated R07.1 Chest pain on breathing Office Visit 01/14/2016 Orthopedic Magalie M70.22 Olecranon 9:30a Services Of Patricia Cardona bursitis, left C.M.A. elbow Office Visit 11/26/2015 Orthopedic Magalie S63.285D Dislocation of 2:30p Services Of Patricia Cardona proximal C.M.A. interphaln joint of l rng fngr, subs Office Visit 11/04/2015 Orthopedic Magalie S63.285D Dislocation of 8:10a Services Of Patricia Cardona proximal C.M.A. interphaln joint of l rng fngr, subs S62.244D Nondisp fx of shaft of 1st MC bone, r hand, 7thD Office Visit 10/26/2015 11:30a Orthopedic Magalie Cardona, S62.244D Nondisp fx of Services Of Patricia shaft of 1st C.M.A. MC bone, r hand, 7thD S63.285D Dislocation of proximal interphaln joint of l rng fngr, subs Office Visit 10/20/2015 11:15a Orthopedic Noah Miller, S62.244A Nondisp fx of Services Of shaft of first C.M.A. MC bone, right hand, init S63.285A Dislocation of proximal interphaln joint of l rng fngr, init S70.02xA Contusion of left hip, initial encounter S43.112A Subluxation of left acromioclavicular joint, init encntr Office Visit 10/17/2012 2:00p [facility] [place] Maldonado 088.81 Lyme Disease Infectious Patricia Bender Diseases Plan of Treatment Future Appointment(s):08/20/2018 8:45 am - Iram Goncalves NP at [facility] [id number]/04/2019 3:20 pm - Tate Thapa M.D. at [facility]
--- OUTSIDE RECORDS SUMMARY | 2018-08-02 02:46 | XMS REPORT | Continuity of Care Document ---
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 02/09/ [...] Result H/L Range Note Lipid Profile 04/05/2018 [facility] Triglycerides 110 mg/dL 1 (Trig/Chol/HDL) [address] [place] [address] [phone] Cholesterol 193 mg/dL 2 HDL Cholesterol 73.5 mg/dL 3 LDL Cholesterol 98 mg/dL 4 Comp Metabolic Panel 04/05/2018 [facility] Sodium 139 mmol/L N 135-[address] [place] [address] [phone] Potassium 3.9 mmol/L N 3.5-5.0 Chloride 105 [...] Egfr 92.5 >60 5 Laboratory test 04/05/2018 [facility] Creatine 105 U/L N 10- [address] Kinase(CK) [place] [address] [phone] Urine Microalbumin 04/05/2018 [facility] Ur Microalbumin < 15.[address] (mg/L) [place] [address] [phone] Urine Creatinine 245.52 mg/dL Urine Microalbumin/Creatinine TNP <31 6 Laboratory test 10/25/2017 [facility] Testosterone 282.77 N 240-[address] Total ng/[place] [address] [phone] PSA Screening 1.002 ng/mL N 0-4.000 7 Vitamin B12 389 pg/mL N 180-914 8 Vitamin D Total 25(Oh) 31.6 ng/mL N 20-50 Laboratory test 10/25/2017 [facility] LDL Cholesterol 130 mg/dL [address] [place] [address] [phone] Iron & Iron 10/25/2017 [facility] Iron 82 g/dL N 50-212 Binding Capacity [address] [place] [address] [phone] Unsaturated Iron Binding 276 g/dL Total Iron Binding Capacity 358 g/dL N 250-450 Transferrin 256 mg/dL N 203-362 % Iron Saturation 23 % N 15-55 Vitamin B12 10/25/2017 [facility] Folic Acid 12.49 ng/mL > 3.99 And Folate [address] (Folate) [place] [address] [phone] CBC Auto Diff 10/25/2017 [facility] White Blood 8.5 10^3/uL N 3.5-10.[address] [place] [address] [phone] Red Blood Count 4.49 10^6/uL N 4.00-5.40 [...] Blood Cells % 0 Laboratory test 10/25/2017 [facility] Magnesium 2.2 mg/dL N 1.9-2.[address] [place] [address] [phone] Lipid Profile 10/25/2017 [facility] Triglycerides 434 mg/dL 10 (Trig/Chol/HDL) [address] [place] [address] [phone] Cholesterol 236 mg/dL 11 HDL Cholesterol 48.9 mg/dL 12 LDL Cholesterol (SEE NOTE) mg/dL 13 Comp Metabolic Panel 10/25/2017 [facility] Sodium 137 mmol/L N 135-[address] [place] [address] [phone] Potassium 4.2 mmol/L N 3.5-5.0 Chloride 100 [...] 82.1 >60 14 Lipid Panel - 10/25/2017 [facility] Creatine 96 U/L N 10-[address] Kinase(CK) [place] [address] [phone] Laboratory 01/19/2016 [facility] Surgical SEE RESULT 15, 16 test finding [address] [place] [address] [phone] Liver Function 10/17/2012 [facility] Alt 223 U/L High 14-[address] [place] [address] [phone] Ast 123 U/L High 12-42 Direct Bilirubin 0.1 mg/dL 0.1-0.5 Total Bilirubin 0.5 mg/dL 0.4-1.5 Albumin 3.4 g/dL Low 3.6-5.4 Tick Borne 10/17/2012 [facility] Babesia microti Negative Negative [address] [place] [address] [phone] Anaplasma phagocytophilum Negative Negative Ehrlichia chaffeensis Negative [...] levels of PSA measured using the Carlos VaxInnate DXI Hybritech immunoassay should not be interpreted [...] 5 Kidney failure <15 (or dialysis) 15 [id number] SEE RESULT BELOW Name: JAE ESQUIVEL : [address]: Magalie Cardona MD Acct: [id number] Unit: [id number] AGE: 55 Location: [facility] Re01/19/16 SEX: M Status: [facility] SPEC: [id number] HORTENCIA: 01/19/16-[address]: Magalie Cardona MD REQ: [id number] RECD: 01/19/[id number] STATUS: SOUT _ ORDERED: LEVEL III COMMENTS: [id number] FINAL DIAGNOSIS Bursa, left elbow, excision: -- Chronic tenosynovitis. PRE-OPERATIVE DIAGNOSIS Left elbow bursitis GROSS DESCRIPTION The specimen is received in formalin labeled, Left Elbow Bursa, and consists of a 6.3 x 3.6 x 0.8 cm, previously disrupted, multilocular cyst comprised of a white-pink, rubbery, fibrocartilaginous to papilliferous tissue. Conveyor Belt Operator sections are submitted in one cassette. Signed (signature on file) Latosha Florentino MD 1112 END OF REPORT * ML=Testing performed at Main Lab DEPARTMENT OF PATHOLOGY, [address] [place] [address] Cirilo Johnson M.D. Director [facility] # [id number] 17 Laboratory developed test. 18 Laboratory developed test. Test Performed by: [place] [address] Keyboard Specialist: Jonathan Dover III, M.D. Procedures Date Code Description Status 11/01/2017 78398 ECHO Stress Test Incl Perf Contiuous ekg Monitoring W/Phys Completed Superv 09/06/2017 85581 EKG Tracing & Interpretation Completed 08/01/2017 35036 EKG, Interpretation Only Completed 07/31/2017 73365 ECHO Transthorasic Realtime 2D W Doppler & Color Flow Hosp Completed 10/17/2016 78897 Closed TRTMT Clavicular Fracture Completed 01/19/2016 69326 Excision, Olecranon Bursa Completed 01/19/2016 38674 Excision, Olecranon Bursa Completed 10/20/2015 29344 Closed TX Metacarpal FX Single W/O Manipulation, Ea Bone Completed Encounters Type Date Location Provider Dx Diagnosis Office Visit 09/06/2017 [facility] Tate Gimenez R07.9 Chest pain, 3:00p Patricia Thapa unspecified I48.0 Paroxysmal atrial fibrillation I10 Essential (primary) hypertension D64.9 Anemia, unspecified Office Visit 08/01/2017 11:16a [facility] Jannie Jensen, I48.91 Unspecified atrial Assoc,pc N.P. fibrillation Hospitalists F10.10 Alcohol abuse, uncomplicated R07.1 Chest pain on breathing Office Visit 07/31/2017 [facility] Chris Wilson I48.91 Unspecified atrial 11:56a Of Brain Picker [place], DO fibrillation FACC Office Visit 07/31/2017 [facility] Catrachita I48.91 Unspecified atrial 11:16a Assoc,pc Kary, [...] joint, init encntr Office Visit 10/17[facility] 088.81 Lyme Disease Infectious Patricia Bender Diseases Plan of Treatment Future Appointment(s):08/20/2018 8:45 am - Iram Goncalves NP at [facility]
[2018-08-02 03:25] VITALS: BP 158/83
== END 2018-08-02 03:24 | disposition home or self-care (01) ==
LOC: ED 02:07
DX: R05 Cough (principal); F41.9 Anxiety disorder, unspecified; K21.9 Gastro-esophageal reflux disease without esophagitis; Z88.0 Allergy status to penicillin; Z79.52 Long term (current) use of systemic steroids
CPT/HCPCS: 99282; A9270-GY; J7512

== ENCOUNTER 2018-12-01 20:29 | Emergency (ER) | payer OTHER ==
--- NOTE | 2018-12-01 21:53 | ED ---
HPI Chest Pain - HPI Summary HPI Summary: A 58 y/o male presents to [facility] with a chief complaint of palpitations, lasting for an hour this morning. He says that he had atrial fibrillation one year ago. He notes two days ago he had some EtOH. He reports having CP, "heart fluttering " and SOB lasting for the past three days, getting increasingly worse and more frequent. At triage he rated his pain as a 3/10 in severity. He says that he was put on Xarelto. - History of Current Complaint Chief Complaint: EDChestPainROMI Time Seen by Provider: 12/01/18 21:46 Hx Obtained From: Patient Onset/Duration: Started Hours Ago, Resolved Timing: Intermittent, Lasting Hours Initial Severity: Mild Current Severity: Mild Pain Intensity: 3 Pain Scale Used: 0-10 Numeric Chest Pain Location: Diffuse Chest Pain Radiates: No Character: Fluttering Aggravating Factor(s): Nothing Alleviating Factor(s): Nothing Associated Signs and Symptoms: Positive: Chest Pain, Shortness of Breath, Palpitations. Negative: Fever - Additional Pertinent History Primary Care Physician: ESTIVEN - Allergy/Home Medications Allergies/Adverse Reactions: Allergies Allergy/AdvReac Type Severity Reaction Status Date / Time Penicillins Allergy Severe Anaphylatic Verified 12/01/18 20:39 Shock Home Medications: Home Medications Rivaroxaban TAB(*) [Xarelto 10 mg (*)] 5 mg PO DAILY 12/01/18 [History Confirmed 12/01/18] PMH/Surg Hx/FS Hx/Imm Hx Endocrine/Hematology History: Denies: Hx Diabetes, Hx Thyroid Disease Cardiovascular History: Denies: Hx Hypertension, Hx Pacemaker/ICD, Hx Peripheral Vascular Disease Respiratory History: Denies: Hx Asthma, Hx Chronic Obstructive Pulmonary Disease (COPD) GI History: Reports: Hx Gastroesophageal Reflux Disease Denies: Hx Ulcer History: Denies: Hx Dialysis, Hx Renal Disease Musculoskeletal History: Reports: Hx Bursitis - left elbow, Other Musculoskeletal History - LEFT SHOULDER SEPARATION OF THE LEFT AC JOINT Denies: Hx Arthritis Sensory History: Reports: Hx Contacts or Glasses - GLASSES Denies: Hx Hearing Aid Opthamlomology History: Reports: Hx Contacts or Glasses - GLASSES Neurological History: Denies: Hx Headaches Psychiatric History: Reports: Hx Anxiety Denies: Hx Panic Disorder - Surgical History Surgery Procedure, Year, and Place: 2011 RIGHT KNEE SCOPE. 2010- RIGHT KNEE SCOPE. TEETH EXTRACTION AGE 13-. TONSILLECTOMY- AGE 13. Thumb laceration. RIGHT KNEE REPLACEMENT [facility]. CHEST TUBE. LT ELBOW - FRACTURED AND BURSA SAC REMOVED Hx Anesthesia Reactions: Yes - N/V A CHILD- NO PROBLEM WITH KNEE SCOPES Infectious Disease History: Yes Infectious Disease History: Denies: Hx Hepatitis, Hx Human Immunodeficiency Virus (HIV), Traveled Outside the [place] in Last 30 Days - Family History Known Family History: Positive: Other - [place]. Negative: Hypertension - Social History Alcohol Use: Occasionally Alcohol Amount: six pack Hx Substance Use: No Substance Use Type: Reports: None Hx Tobacco Use: No Smoking Status (MU): Never Smoked Tobacco Review of Systems Negative: Fever Positive: Palpitations - fluttering, Chest Pain Positive: Shortness Of Breath All Other Systems Reviewed And Are Negative: Yes Physical Exam - Summary Physical Exam Summary: Appearance: Well-appearing, Well-nourished, lying in bed comfortably Skin: Warm, dry, no obvious rash Eyes: sclera anicteric, no conjunctival pallor ENT: mucous membranes moist, pharynx appears normal Neck: Supple, nontender Respiratory: Clear to auscultation, no signs of respiratory distress Cardiovascular: Normal S1, S2. No murmurs. Normal distal pulses in tibial and radial bilaterally. Abdomen: Soft, nontender, normal active bowel sounds present Musculoskeletal: Normal, Strength/ROM Intact Neurological: A&Ox3, awake and alert, mentation is normal, speech is fluent and appropriate Psychiatric: affect is normal, does not appear anxious or depressed Triage Information Reviewed: Yes Vital Signs On Initial Exam: Initial Vitals Temp Pulse Resp BP Pulse Ox 98.1 F 64 15 156/84 95 12/01/18 20:38 12/01/18 20:38 12/01/18 20:38 12/01/18 20:38 12/01/18 20:38 Vital Signs Reviewed: Yes Diagnostics - Vital Signs Vital Signs Temp Pulse Resp BP Pulse Ox 12/01/18 20:38 98.1 F 64 15 156/84 95 - Laboratory Result Diagrams: 12/01/18 21:46 12/01/18 21:46 Lab Statement: Any lab studies that have been ordered have been reviewed, and results considered in the medical decision making process. - EKG 20:33 Cardiac Rate: NL - 75 bpm EKG Rhythm: Sinus Rhythm Summary of EKG Findings: NSR at 75 BPM, P waves, QRS complex, and T waves are within normal limits, T waves and intervals are normal, no ischemic changes. This is a normal EKG. Chest Pain Course/Dx - Course Course Of Treatment: A 58 y/o male presents to [facility] with a chief complaint of palpitations, lasting for an hour this morning. He says that he had atrial fibrillation one year ago and also reports EtOH use before his intermittent CP and SOB for the past three days had begun. The physical exam was unremarkable. Blood work and chemistries obtained and are WNL. EKG showed NSR at 75 BPM, P waves, QRS complex, and T waves are within normal limits, T waves and intervals are normal, no ischemic changes. This is a normal EKG. 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 The patient is agreeable with this plan. - Diagnoses Provider Diagnoses: Paroxysmal atrial fibrillation Discharge - Sign-Out/Discharge Documenting (check all that apply): Patient Departure - DC Patient Received Moderate/Deep Sedation with Procedure: No - Discharge Plan Condition: Good Disposition: HOME Patient Education Materials: A-fib (Atrial Fibrillation) (ED) Referrals: Josh Lynch MD [Primary Care Provider] - Additional Instructions: Contact your cigar maker on Monday. I would recommend avoiding excess alcohol consumption, as this will often precipitate bouts of a. fib. Take the xarelto in the meantime, but the cigar maker should be involved in your decision as to whether to continue that medication given your profession. - Billing Disposition and Condition Condition: GOOD Disposition: Home - Attestation Statements Document Initiated by Paola: Yes Documenting Scribe: Kiran Mace Provider For Whom Paola is Documenting (Include Credential): Joshua Araya MD Scribe Attestation: I, Kiran Mace, scribed for Joshua Araya MD on 12/02/18 at 0300. Scribe Documentation Reviewed: Yes Provider Attestation: The documentation as recorded by the Kiran bobby accurately reflects the service I personally performed and the decisions made by me, Joshua Araya MD Status of Scribe Document: Viewed
[2018-12-01 21:56] LABS: ABS Eosinophils 0.2 10^3/ul (0-0.6); ABS Lymphocytes 1.6 10^3/ul (1.0-4.8); ABS Monocytes 1.2 10^3/ul (0-0.8); ABS Neutrophils 5.2 10^3/ul (1.5-7.7); Eosinophil % 2.2 %; Hematocrit 40 % (42-52); Hemoglobin 13.9 g/dL (14.0-18.0); Mean Corpuscular HGB Conc 35 g/dL (31-36); Mean Corpuscular Hemoglobin 35 pg (27-31); Mean Corpuscular Volume 101 fL (80-94); Mean Platelet Volume 7.3 fL (7.4-10.4); Platelet Count 288 10^3/uL (150-450); Red Blood Count 3.96 10^6 /uL (4.18-5.48); Red Cell Distribution Width 13 % (10-15); White Blood Count 8.2 10^3/uL (3.5-10.8)
[2018-12-01 22:03] LABS: INR 1.47 (0.82-1.09)
[2018-12-01 22:17] LABS: Albumin 3.8 g/dL (3.2-5.2); Albumin/Globulin Ratio 1.3 (1-3); BUN/Creatinine Ratio 14.5 (8-20); Calcium 9.1 mg/dL (8.6-10.3); EGFR African American 64.3 (>60); EGFR Non-African American 53.1 (>60); Potassium 3.6 mmol/L (3.5-5.0); Total Bilirubin 0.3 mg/dL (0.2-1.0); Total Protein 6.8 g/dL (6.4-8.9)
[2018-12-01 22:35] VITALS: BP 119/78
== END 2018-12-01 22:34 | disposition home or self-care (01) ==
LOC: ED 20:29
DX: I48.0 Paroxysmal atrial fibrillation (principal); Z88.0 Allergy status to penicillin; K21.9 Gastro-esophageal reflux disease without esophagitis; F41.9 Anxiety disorder, unspecified; Z79.01 Long term (current) use of anticoagulants
CPT/HCPCS: 36415; 80053; 84484; 85025; 85610; 93005; 99283